=== PATIENT | male | born 1985 | race African-American/Black ===

== ENCOUNTER 2020-04-18 14:07 | Emergency (ER) | payer OTHER ==
[~2020-04-18] VITALS: Ht 188 cm; Wt 109.0 kg
[2020-04-18 16:57] VITALS: BP 156/85
[2020-04-18] MEDS ORDERED: LIDOCAINE 1% Multi-Dose 20 ML VIAL. INJ ONE (17:00)
[2020-04-18] MEDS ORDERED: LIDOCAINE/EPI/TETRACAINE TOPICAL GEL 3 ML. TP ONE (17:00)
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
[2020-04-18] MEDS ORDERED: DIPH,PERTUSS(ACELL),TET VAC/PF 0.5 ML SYRINGE. VAX IM ONE (19:00)
== END 2020-04-18 19:15 | disposition home or self-care (01) ==
LOC: ER 14:07
DX: S81.812A Laceration without foreign body, left lower leg, initial encounter (principal); Z98.890 Other specified postprocedural states; Y08.89XA Assault by other specified means, initial encounter; Y93.89 Activity, other specified; Y92.89 Other specified places as the place of occurrence of the external cause; Y99.8 Other external cause status
CPT/HCPCS: 12002; 90471; 90715; 99283; J3490